=== PATIENT | female | born 1970 | race Caucasian/White ===

== ENCOUNTER 2021-11-12 10:42 | Day surgery (SDC) | payer BC ==
[2021-11-10 16:44] VITALS: BMI 20.8
[2021-11-12] MEDS ORDERED: PROPOFOL 20 ML ONE ×4 (11:43)
[2021-11-12 12:49] VITALS: TEMP 97
[2021-11-12 12:51] VITALS: BP 124/71; PULSE 64
== END 2021-11-12 13:01 | disposition home or self-care (01) ==
LOC: FASU 10:42
PROVIDERS: ATTEND Internal Medicine Gastroenterology
PROC: 0DBN8ZX Excision of Sigmoid Colon, Via Natural or Artificial Opening Endoscopic, Diagnostic (ICD-10-PCS; principal; 2021-11-12 12:04)
DX: Z12.11 Encounter for screening for malignant neoplasm of colon (principal); D12.5 Benign neoplasm of sigmoid colon; K64.1 Second degree hemorrhoids
CPT/HCPCS: 88305-TC